=== PATIENT | female | born 1985 | race Two or more races ===

== ENCOUNTER 2016-08-26 15:43 | Emergency (ER) | payer MEDICAID ==
[~2016-08-26] VITALS: Ht 157.5 cm; Wt 59.0 kg
[~2016-08-26 15:43] MED LIST: IRONTAB35 PO; PREN-96 PO
[2016-08-26 16:49] LABS: Urine Bilirubin Negative (Negative); Urine Blood Negative /uL (Negative); Urine Color Yellow (Yellow); Urine Glucose Normal (Normal); Urine Ketone Negative (Negative); Urine Mucus FEW (None Seen); Urine Nitrite Negative (Negative); Urine RBC <1 /hpf (0 - 4); Urine Squamous Epithelial Cell FEW /hpf (<5); Urine Urobilinogen Normal (Negative); Urine pH 5.5 (5.0-8.0)
[2016-08-26 16:52] LABS: Basophils # (auto) 0 uL; Basophils % (auto) 0.3 % (0.0-2.0); Eosinophils # (auto) 0 uL; Eosinophils % (auto) 0.7 % (0.0-7.0); Hematocrit 38.1 % (36.0-46.0); Hemoglobin 12.6 g/dL (12.2-16.2); Lymphocytes # (auto) 1.6 uL; Lymphocytes % (auto) 22.1 % (10.0-50.0); Mean Corpuscular Hemoglobin 27.2 pg (28.0-32.0); Mean Corpuscular Volume 82.5 fL (80.0-100.0); Mean Platelet Volume 8.5 fL (7.4-10.4); Monocytes # (auto) 0.5 uL; Monocytes % (auto) 6.3 % (0.0-12.0); Neutrophils # (auto) 5.1 uL; Neutrophils % (auto) 70.6 % (37.0-80.0); Platelet Count (auto) 282 10^3/uL (140-450); Red Cell Distribution Width 14.1 % (11.6-16.0); White Blood Cell 7.2 10^3/uL (4.4-10.8)
[2016-08-26 17:13] LABS: Albumin 3.5 g/dL (3.4-5.0); BUN/Creatinine Ratio 12.5; Bilirubin, Total 0.4 mg/dL (0.2-1.0); Calcium 9.1 mg/dL (8.5-10.1); Potassium 3.5 mmol/L (3.5-5.1); Total Protein 7.6 g/dL (6.4-8.2)
[2016-08-26] MEDS ORDERED: ACETAMINOPHEN 500 MG TAB PO ONE (18:45)
[2016-08-26] MEDS ORDERED: ONDANSETRON ODT 4 MG TAB PO ONE (19:00)
[2016-08-26 21:40] VITALS: BP 92/61
== END 2016-08-26 22:22 | disposition home or self-care (01) ==
LOC: ER 15:45
DX: O26.891 Other specified pregnancy related conditions, first trimester (principal); K52.9 Noninfective gastroenteritis and colitis, unspecified
CPT/HCPCS: 36415; 76801; 80053; 81001; 81025; 84702; 85025; 99285; Q0162

== ENCOUNTER 2021-11-08 13:06 | Emergency (ER) | payer MEDICAID ==
[~2021-11-08] VITALS: Ht 157.5 cm; Wt 65.8 kg
[2021-11-08 13:37] VITALS: BP 116/78
[2021-11-08] MEDS ORDERED: IBUPROFEN 800 MG TAB PO ONE (16:15)
[2021-11-08] MEDS ORDERED: IBUP800T27 PO (16:16)
== END 2021-11-08 16:39 | disposition home or self-care (01) ==
LOC: ER 13:06
DX: S83.92XA Sprain of unspecified site of left knee, initial encounter (principal); W18.00XA Striking against unspecified object with subsequent fall, initial encounter; Y93.89 Activity, other specified; Y92.89 Other specified places as the place of occurrence of the external cause; Y99.8 Other external cause status
CPT/HCPCS: 29505; 73562

== ENCOUNTER 2022-04-20 18:49 | Emergency (ER) | payer MEDICAID ==
[~2022-04-20] VITALS: Ht 152.4 cm; Wt 61.5 kg
[~2022-04-20 18:49] MED LIST changes: +IBUP800T27 PO
[2022-04-20 19:44] LABS: Urine Bacteria NONE SEEN /hpf (None Seen); Urine Blood Negative /uL (Negative); Urine Mucus FEW (None Seen); Urine Specific Gravity 1.024 (1.001-1.035); Urine WBC 1 /hpf (0 - 5)
[2022-04-20 20:05] LABS: Basophils # (auto) 0 10 ^3/uL (0-0.2); Basophils % (auto) 0.2 % (0.0-2.0); Eosinophils # (auto) 0 10 ^3/uL (0-0.8); Eosinophils % (auto) 0.7 % (0.0-7.0); Hematocrit 40.5 % (36.0-46.0); Hemoglobin 13.5 g/dL (12.2-16.2); Lymphocytes % (auto) 33.4 % (10.0-50.0); Mean Corpuscular Hemoglobin 27.5 pg (28.0-32.0); Mean Corpuscular Hgb Conc. 33.2 g/dL (32.0-36.0); Mean Corpuscular Volume 82.8 fL (80.0-100.0); Monocytes # (auto) 0.6 10 ^3/uL (0-1.3); Monocytes % (auto) 10.7 % (0.0-12.0); Neutrophils # (auto) 3.3 10 ^3/uL (1.6-8.6); Nucleated Red Blood Cells % 0.5 %; Red Blood Cells 4.89 10^6/uL (4.0-5.20); Red Cell Distribution Width 11.9 % (11.8-14.3)
[2022-04-20 22:36] LABS: Albumin 3.6 g/dL (3.4-5.0); BUN/Creatinine Ratio 39.1; Calcium 9.5 mg/dL (8.5-10.1); Potassium 3.9 mmol/L (3.5-5.1)
[2022-04-20 22:39] LABS: Bilirubin, Total 0.6 mg/dL (0.2-1.0); Total Protein 6.3 g/dL (6.4-8.2)
[2022-04-20 22:56] LABS: Free T3 > 20.00 pg/mL (2.3-4.2); Free T4 (Free Thyroxine) 5.72 ng/dL (0.89-1.76)
[2022-04-20] MEDS ORDERED: methIMAzole 5 MG TAB PO ONE (23:45)
[2022-04-20] MEDS ORDERED: PROPRANOLOL HCL 20 MG TAB PO ONE (23:45)
[2022-04-21] MEDS ORDERED: PROP20TA73 PO (02:51)
[2022-04-21] MEDS ORDERED: METH10TA6 PO (02:51)
[2022-04-21] MEDS ORDERED: KETOROLAC TROMETH 30 MG/ML 1ML VIAL IM ONE (03:00)
[2022-04-21 03:21] VITALS: BP 118/57
== END 2022-04-21 03:28 | disposition home or self-care (01) ==
LOC: ER 18:49
DX: E05.90 Thyrotoxicosis, unspecified without thyrotoxic crisis or storm (principal); R10.84 Generalized abdominal pain; Z79.899 Other long term (current) drug therapy
CPT/HCPCS: 36415; 74176; 80053; 81001; 81025; 83690; 84439; 84443; 84481; 84702; 85025; 93005; 96372; 99285; J1885